=== PATIENT | male | born 1970 | race Caucasian/White ===

== ENCOUNTER 2021-08-17 02:01 | Emergency (ER) | payer OTHER ==
[2021-08-17 02:13] VITALS: BP 106/66; PULSE 76; TEMP 98.7; BMI 20.6
== END 2021-08-17 07:50 | disposition short-term general hospital (02) ==
LOC: JER 02:01
DX: F19.10 Other psychoactive substance abuse, uncomplicated (principal)
CPT/HCPCS: 99283-25

== ENCOUNTER 2021-08-17 08:53 | Inpatient (IN) | payer OTHER ==
[2021-08-17] MEDS ORDERED: IBUPROFEN 400 MG TABLET (FP) PO PRN (12:46)
[2021-08-17] MEDS ORDERED: MAGNESIUM CITRATE 300 ML BOTTLE PO PRN (12:46)
[2021-08-17] MEDS ORDERED: MAG HYDROX/AL HYDROX/SIMETH 30 ML UNIT-DOSE CUP PO PRN (12:46)
[2021-08-17] MEDS ORDERED: MAGNESIUM HYDROX 2400MG/30ML ORAL SUSPENSION 30 ML CUP PO PRN (12:46)
[2021-08-17] MEDS ORDERED: ONDANSETRON *ODT* 4 MG TABLET SL PRN (12:46)
[2021-08-17] MEDS ORDERED: MENTHOL/PHENOL 1 EACH UD MM PRN (12:46)
[2021-08-17] MEDS ORDERED: BISMUTH SUBSALICYLATE 524 MG/30 ML PO PRN (12:46)
[2021-08-17] MEDS ORDERED: ACETAMINOPHEN 325 MG TABLET (FP) PO PRN ×2 (12:46)
[2021-08-17] MEDS ORDERED: NICOTINE 10 MG CARTRIDGE (INHALER) IH PRN (12:46)
[2021-08-17] MEDS ORDERED: cloNIDine HCL 0.1 MG TABLET PO PRN (12:46)
[2021-08-17] MEDS ORDERED: methaDONE HCL 10 MG TABLET (FOR DETOX USE ONLY) PO ONE (13:15)
[2021-08-17 14:36] VITALS: BMI 21.9
[2021-08-17] MEDS: hydrOXYzine PAMOATE 25 MG CAPSULE (FP) PO PRN (14:55)
[2021-08-17] MEDS: METHOCARBAMOL 500 MG TABLET PO PRN (14:55)
[2021-08-17] MEDS: clonazePAM 0.5 MG ODT TABLETS SL PRN (14:55)
[2021-08-17 16:44] LABS: HEMATOCRIT 30.7 % (35.4-49); HEMOGLOBIN 10.2 GM/dL (11.7-16.9); MCH 29.2 pg (25.7-33.7); MCHC 33.3 g/dl (32.0-35.9); MEAN CELL VOLUME 87.5 fl (80-96); MEAN PLT VOLUME 8.3 fl (7.5-11.1); PLATELET COUNT 166 10^3/uL (134-434); RBC 3.51 M/mm3 (4.00-5.60); RDW 14.7 % (11.9-15.9); WHITE BLOOD COUNT 4.9 K/mm3 (4.0-10.0)
[2021-08-17 16:50] LABS: CALCIUM 8.6 mg/dL (8.5-10.1)
[2021-08-17 16:51] LABS: ALBUMIN 2.7 g/dl (3.4-5.0); BLOOD UREA NITROGEN 16.2 mg/dL (7-18)
[2021-08-17 16:54] LABS: CREATININE 0.9 mg/dL (0.55-1.3)
[2021-08-17 16:55] LABS: BILIRUBIN,TOTAL 0.2 mg/dL (0.2-1); TOT PROT 7.8 g/dl (6.4-8.2)
[2021-08-17 18:19] LABS: PLATELET ESTIMATE NORMAL
[2021-08-17] MEDS: MELATONIN 5 MG TABLETS PO SCH (21:44)
[2021-08-17] MEDS: THIAMINE HCL 100 MG TABLET (FP) PO SCH (21:44)
[2021-08-18 08:36] LABS: HEMATOCRIT 29.2 % (35.4-49); HEMOGLOBIN 9.9 GM/dL (11.7-16.9); MCH 29.4 pg (25.7-33.7); MCHC 33.9 g/dl (32.0-35.9); MEAN CELL VOLUME 86.7 fl (80-96); PLATELET COUNT 179 10^3/uL (134-434); RBC 3.37 M/mm3 (4.00-5.60); RDW 14.2 % (11.9-15.9); WHITE BLOOD COUNT 3.8 K/mm3 (4.0-10.0)
[2021-08-18 09:00] LABS: ALBUMIN 2.3 g/dl (3.4-5.0); CALCIUM 8.4 mg/dL (8.5-10.1)
[2021-08-18 09:03] LABS: BILIRUBIN,TOTAL 0.3 mg/dL (0.2-1); CREATININE 0.8 mg/dL (0.55-1.3)
[2021-08-18] MEDS ORDERED: methaDONE HCL 10 MG TABLET (FOR DETOX USE ONLY) ONE (10:05)
[2021-08-18] MEDS: hydrOXYzine PAMOATE 25 MG CAPSULE (FP) PO PRN (10:30)
[2021-08-18] MEDS: METHOCARBAMOL 500 MG TABLET PO PRN (10:30)
[2021-08-18] MEDS: clonazePAM 0.5 MG ODT TABLETS SL PRN (10:30)
[2021-08-18] MEDS: PRENATAL VITAMINS W/ FOLIC ACID TABLET (FP) PO SCH (10:31)
[2021-08-18] MEDS: NICOTINE 7 MG/24 HOURS TOPICAL PATCH TD SCH (10:31)
[2021-08-18] MEDS: FERROUS SO4 325 MG TABLET (FP) PO SCH ×2 (13:51→18:27)
[2021-08-18] MEDS: THIAMINE HCL 100 MG TABLET (FP) PO SCH (23:26)
[2021-08-18] MEDS: MELATONIN 5 MG TABLETS PO SCH (23:27)
[2021-08-19] MEDS ORDERED: methaDONE HCL 10 MG TABLET (FOR DETOX USE ONLY) PO ONE (10:00)
[2021-08-19 11:20] LABS: HEMATOCRIT 33.6 % (35.4-49); HEMOGLOBIN 11.2 GM/dL (11.7-16.9); MCHC 33.2 g/dl (32.0-35.9); MEAN CELL VOLUME 87.4 fl (80-96); MEAN PLT VOLUME 7.8 fl (7.5-11.1); PLATELET COUNT 208 10^3/uL (134-434); RBC 3.84 M/mm3 (4.00-5.60); RDW 14.7 % (11.9-15.9); WHITE BLOOD COUNT 5.4 K/mm3 (4.0-10.0)
[2021-08-19] MEDS: FERROUS SO4 325 MG TABLET (FP) PO SCH ×3 (11:24→17:54)
[2021-08-19] MEDS: NICOTINE 7 MG/24 HOURS TOPICAL PATCH TD SCH (11:24)
[2021-08-19] MEDS: PRENATAL VITAMINS W/ FOLIC ACID TABLET (FP) PO SCH (11:25)
[2021-08-19] MEDS: MELATONIN 5 MG TABLETS PO SCH (22:54)
[2021-08-19] MEDS: THIAMINE HCL 100 MG TABLET (FP) PO SCH (22:54)
[2021-08-20] MEDS ORDERED: methaDONE HCL 10 MG TABLET (FOR DETOX USE ONLY) ONE (09:26)
[2021-08-20] MEDS: FERROUS SO4 325 MG TABLET (FP) PO SCH ×3 (10:47→18:21)
[2021-08-20] MEDS: PRENATAL VITAMINS W/ FOLIC ACID TABLET (FP) PO SCH (10:47)
[2021-08-20] MEDS: NICOTINE 7 MG/24 HOURS TOPICAL PATCH TD SCH (10:48)
[2021-08-20] MEDS: METHOCARBAMOL 500 MG TABLET PO PRN ×2 (10:49→22:18)
[2021-08-20] MEDS: THIAMINE HCL 100 MG TABLET (FP) PO SCH (22:17)
[2021-08-20] MEDS: MELATONIN 5 MG TABLETS PO SCH (22:17)
[2021-08-20] MEDS: hydrOXYzine PAMOATE 25 MG CAPSULE (FP) PO PRN (22:18)
[2021-08-21] MEDS ORDERED: methaDONE HCL 10 MG TABLET (FOR DETOX USE ONLY) PO ONE (10:00)
[2021-08-21] MEDS: FERROUS SO4 325 MG TABLET (FP) PO SCH ×3 (10:18→18:22)
[2021-08-21] MEDS: NICOTINE 7 MG/24 HOURS TOPICAL PATCH TD SCH (10:19)
[2021-08-21] MEDS: PRENATAL VITAMINS W/ FOLIC ACID TABLET (FP) PO SCH (10:19)
[2021-08-21] MEDS: MELATONIN 5 MG TABLETS PO SCH (23:14)
[2021-08-21] MEDS: THIAMINE HCL 100 MG TABLET (FP) PO SCH (23:14)
[2021-08-22] MEDS: METHOCARBAMOL 500 MG TABLET PO PRN (06:16)
[2021-08-22 09:20] VITALS: BP 101/62; PULSE 77; TEMP 96.9
[2021-08-22] MEDS: NICOTINE 7 MG/24 HOURS TOPICAL PATCH TD SCH (11:03)
[2021-08-22] MEDS: PRENATAL VITAMINS W/ FOLIC ACID TABLET (FP) PO SCH (11:03)
[2021-08-22] MEDS: FERROUS SO4 325 MG TABLET (FP) PO SCH (11:03)
== END 2021-08-22 12:03 | disposition other institution (70) | DRG 773 ==
LOC: YASAS 08:53 → Y3N 13:03
PROVIDERS: ADMIT Allergy & Immunology; ATTEND Allergy & Immunology
PROC: HZ2ZZZZ Detoxification Services for Substance Abuse Treatment (ICD-10-PCS; principal; 2021-08-17)
DX: F11.23 Opioid dependence with withdrawal (principal); F14.20 Cocaine dependence, uncomplicated; F10.10 Alcohol abuse, uncomplicated; F17.210 Nicotine dependence, cigarettes, uncomplicated; D64.9 Anemia, unspecified; Z98.890 Other specified postprocedural states
CPT/HCPCS: 36415; 80053; 85025; 85027; 86780; C9803; J0735; Q0162; U0003; U0005

== ENCOUNTER 2021-08-22 12:01 | Inpatient (IN) | payer OTHER ==
[2021-08-22] MEDS ORDERED: guaiFENesin 200 MG/10 ML 10 ML UNIT-DOSE CUPS PO PRN (12:14)
[2021-08-22] MEDS ORDERED: P-EPHED 60MG/TRIPROLIDI 2.5MG TABLET PO PRN (12:14)
[2021-08-22] MEDS ORDERED: MENTHOL/PHENOL 1 EACH UD MM PRN (12:14)
[2021-08-22] MEDS ORDERED: MAGNESIUM CITRATE 300 ML BOTTLE PO PRN (12:14)
[2021-08-22] MEDS ORDERED: IBUPROFEN 400 MG TABLET (FP) PO PRN (12:14)
[2021-08-22] MEDS ORDERED: LOPERAMIDE HCL 2 MG CAPSULE PO PRN (12:14)
[2021-08-22] MEDS ORDERED: ACETAMINOPHEN 325 MG TABLET (FP) PO PRN (12:14)
[2021-08-22] MEDS ORDERED: MAGNESIUM HYDROX 2400MG/30ML ORAL SUSPENSION 30 ML CUP PO PRN (12:14)
[2021-08-22] MEDS: THIAMINE HCL 100 MG TABLET (FP) PO SCH (21:33)
[2021-08-22] MEDS: MELATONIN 5 MG TABLETS PO SCH (21:33)
[2021-08-23] MEDS: PRENATAL VITAMINS W/ FOLIC ACID TABLET (FP) PO SCH (10:59)
[2021-08-23 11:23] LABS: HIV INTERPRETATION NEGATIVE (NEGATIVE)
[2021-08-23] MEDS: MELATONIN 5 MG TABLETS PO SCH (21:12)
[2021-08-23] MEDS: THIAMINE HCL 100 MG TABLET (FP) PO SCH (21:12)
[2021-08-24] MEDS: PRENATAL VITAMINS W/ FOLIC ACID TABLET (FP) PO SCH (10:34)
[2021-08-24] MEDS: NICOTINE 10 MG CARTRIDGE (INHALER) IH SCH (12:21)
[2021-08-24] MEDS: THIAMINE HCL 100 MG TABLET (FP) PO SCH (21:34)
[2021-08-24] MEDS: MELATONIN 5 MG TABLETS PO SCH (21:34)
[2021-08-25] MEDS: PRENATAL VITAMINS W/ FOLIC ACID TABLET (FP) PO SCH (09:41)
[2021-08-25] MEDS: NICOTINE 10 MG CARTRIDGE (INHALER) IH SCH (09:42)
[2021-08-25] MEDS: hydrOXYzine PAMOATE 50 MG CAPSULE (FP) PO PRN (17:57)
[2021-08-25] MEDS: THIAMINE HCL 100 MG TABLET (FP) PO SCH (21:19)
[2021-08-25] MEDS: MELATONIN 5 MG TABLETS PO SCH (21:19)
[2021-08-26] MEDS: PRENATAL VITAMINS W/ FOLIC ACID TABLET (FP) PO SCH (10:27)
[2021-08-26] MEDS: hydrOXYzine PAMOATE 50 MG CAPSULE (FP) PO PRN ×2 (10:28→21:27)
[2021-08-26] MEDS: NICOTINE 10 MG CARTRIDGE (INHALER) IH SCH (10:28)
[2021-08-26] MEDS: THIAMINE HCL 100 MG TABLET (FP) PO SCH (21:26)
[2021-08-26] MEDS: MELATONIN 5 MG TABLETS PO SCH (21:26)
[2021-08-27] MEDS: PRENATAL VITAMINS W/ FOLIC ACID TABLET (FP) PO SCH (09:44)
[2021-08-27] MEDS: NICOTINE 10 MG CARTRIDGE (INHALER) IH SCH (09:44)
[2021-08-27] MEDS: hydrOXYzine PAMOATE 50 MG CAPSULE (FP) PO PRN ×2 (14:43→21:11)
[2021-08-27] MEDS: THIAMINE HCL 100 MG TABLET (FP) PO SCH (21:11)
[2021-08-27] MEDS: MELATONIN 5 MG TABLETS PO SCH (21:11)
[2021-08-28] MEDS: NICOTINE 10 MG CARTRIDGE (INHALER) IH SCH (10:47)
[2021-08-28] MEDS: PRENATAL VITAMINS W/ FOLIC ACID TABLET (FP) PO SCH (10:47)
[2021-08-28] MEDS: hydrOXYzine PAMOATE 50 MG CAPSULE (FP) PO PRN (19:17)
[2021-08-28] MEDS: THIAMINE HCL 100 MG TABLET (FP) PO SCH (21:23)
[2021-08-28] MEDS: MELATONIN 5 MG TABLETS PO SCH (21:23)
[2021-08-29] MEDS: NICOTINE 10 MG CARTRIDGE (INHALER) IH SCH (09:50)
[2021-08-29] MEDS: PRENATAL VITAMINS W/ FOLIC ACID TABLET (FP) PO SCH (09:50)
[2021-08-29] MEDS: THIAMINE HCL 100 MG TABLET (FP) PO SCH (21:08)
[2021-08-29] MEDS: MELATONIN 5 MG TABLETS PO SCH (21:08)
[2021-08-29] MEDS: hydrOXYzine PAMOATE 50 MG CAPSULE (FP) PO PRN (21:09)
[2021-08-30] MEDS: PRENATAL VITAMINS W/ FOLIC ACID TABLET (FP) PO SCH (10:14)
[2021-08-30] MEDS: NICOTINE 10 MG CARTRIDGE (INHALER) IH SCH (10:15)
[2021-08-30] MEDS: MELATONIN 5 MG TABLETS PO SCH (21:22)
[2021-08-30] MEDS: hydrOXYzine PAMOATE 50 MG CAPSULE (FP) PO PRN (21:23)
[2021-08-30] MEDS: QUEtiapine FUMARATE 25 MG TABLET PO SCH (21:23)
[2021-08-30] MEDS: THIAMINE HCL 100 MG TABLET (FP) PO SCH (21:23)
[2021-08-31] MEDS: PRENATAL VITAMINS W/ FOLIC ACID TABLET (FP) PO SCH (10:19)
[2021-08-31] MEDS: NICOTINE 10 MG CARTRIDGE (INHALER) IH SCH (10:19)
[2021-08-31] MEDS: MAG HYDROX/AL HYDROX/SIMETH 30 ML UNIT-DOSE CUP PO PRN (20:43)
[2021-08-31] MEDS: THIAMINE HCL 100 MG TABLET (FP) PO SCH (21:23)
[2021-08-31] MEDS: hydrOXYzine PAMOATE 50 MG CAPSULE (FP) PO PRN (21:23)
[2021-08-31] MEDS: QUEtiapine FUMARATE 25 MG TABLET PO SCH (21:23)
[2021-08-31] MEDS: MELATONIN 5 MG TABLETS PO SCH (21:24)
[2021-09-01] MEDS: NICOTINE 10 MG CARTRIDGE (INHALER) IH SCH (10:31)
[2021-09-01] MEDS: PRENATAL VITAMINS W/ FOLIC ACID TABLET (FP) PO SCH (10:31)
[2021-09-01] MEDS: QUEtiapine FUMARATE 25 MG TABLET PO SCH (21:39)
[2021-09-01] MEDS: THIAMINE HCL 100 MG TABLET (FP) PO SCH (21:40)
[2021-09-01] MEDS: MELATONIN 5 MG TABLETS PO SCH (21:40)
[2021-09-02] MEDS: PRENATAL VITAMINS W/ FOLIC ACID TABLET (FP) PO SCH (09:53)
[2021-09-02] MEDS: NICOTINE 10 MG CARTRIDGE (INHALER) IH SCH (09:53)
[2021-09-02] MEDS: QUEtiapine FUMARATE 25 MG TABLET PO SCH (21:14)
[2021-09-02] MEDS: MELATONIN 5 MG TABLETS PO SCH (21:14)
[2021-09-02] MEDS: THIAMINE HCL 100 MG TABLET (FP) PO SCH (21:14)
[2021-09-02] MEDS: hydrOXYzine PAMOATE 50 MG CAPSULE (FP) PO PRN (21:15)
[2021-09-03] MEDS: NICOTINE 10 MG CARTRIDGE (INHALER) IH SCH (10:06)
[2021-09-03] MEDS: PRENATAL VITAMINS W/ FOLIC ACID TABLET (FP) PO SCH (10:06)
[2021-09-03] MEDS: MELATONIN 5 MG TABLETS PO SCH (21:24)
[2021-09-03] MEDS: THIAMINE HCL 100 MG TABLET (FP) PO SCH (21:24)
[2021-09-03] MEDS: hydrOXYzine PAMOATE 50 MG CAPSULE (FP) PO PRN (21:25)
[2021-09-03] MEDS: QUEtiapine FUMARATE 25 MG TABLET PO SCH (21:25)
[2021-09-04] MEDS: NICOTINE 10 MG CARTRIDGE (INHALER) IH SCH (09:39)
[2021-09-04] MEDS: PRENATAL VITAMINS W/ FOLIC ACID TABLET (FP) PO SCH (09:39)
[2021-09-04] MEDS: MAG HYDROX/AL HYDROX/SIMETH 30 ML UNIT-DOSE CUP PO PRN (20:59)
[2021-09-04] MEDS: QUEtiapine FUMARATE 25 MG TABLET PO SCH (21:12)
[2021-09-04] MEDS: THIAMINE HCL 100 MG TABLET (FP) PO SCH (21:12)
[2021-09-04] MEDS: MELATONIN 5 MG TABLETS PO SCH (21:12)
[2021-09-04] MEDS: hydrOXYzine PAMOATE 50 MG CAPSULE (FP) PO PRN (21:13)
[2021-09-05 07:35] VITALS: BP 120/75; PULSE 80; TEMP 98.2
[2021-09-05] MEDS: PRENATAL VITAMINS W/ FOLIC ACID TABLET (FP) PO SCH (10:30)
[2021-09-05] MEDS: NICOTINE 10 MG CARTRIDGE (INHALER) IH SCH (10:30)
== END 2021-09-05 10:20 | disposition home or self-care (01) | DRG 772 ==
LOC: YASAS 12:01 → Y3W 12:02
PROVIDERS: ADMIT Allergy & Immunology; ATTEND Allergy & Immunology
PROC: HZ42ZZZ Group Counseling for Substance Abuse Treatment, Cognitive-Behavioral (ICD-10-PCS; principal; 2021-08-22)
DX: F11.20 Opioid dependence, uncomplicated (principal); F14.20 Cocaine dependence, uncomplicated; F13.10 Sedative, hypnotic or anxiolytic abuse, uncomplicated; F17.210 Nicotine dependence, cigarettes, uncomplicated; F19.282 Other psychoactive substance dependence with psychoactive substance-induced sleep disorder; F19.280 Other psychoactive substance dependence with psychoactive substance-induced anxiety disorder; F19.24 Other psychoactive substance dependence with psychoactive substance-induced mood disorder; Z62.810 Personal history of physical and sexual abuse in childhood; R63.4 Abnormal weight loss; Z68.1 Body mass index [BMI] 19.9 or less, adult; Z91.410 Personal history of adult physical and sexual abuse; Z86.59 Personal history of other mental and behavioral disorders
CPT/HCPCS: 36415; 86803; 87177; 87209; 87389; 87522; 87899